=== PATIENT | male | born 1985 | race Caucasian/White ===

== ENCOUNTER 2017-09-14 17:41 | Emergency (ER) | payer OTHER ==
[~2017-09-14] VITALS: Ht 188 cm; Wt 75.0 kg
[2017-09-14 17:43] VITALS: BP 148/89
== END 2017-09-14 19:05 | disposition home or self-care (01) ==
LOC: ED 19:02
DX: F29 Unspecified psychosis not due to a substance or known physiological condition (principal); F22 Delusional disorders; F15.10 Other stimulant abuse, uncomplicated
CPT/HCPCS: 99284